=== PATIENT | female | born 1980 ===

== ENCOUNTER 2025-03-08 09:36 | Outpatient (CLI) | payer OTHER | END 2025-03-08 09:38 | disposition home or self-care (01) | LOC: PRENATAL 09:36 | PROVIDERS: ATTEND Obstetrics & Gynecology Maternal & Fetal Medicine | DX: O44.00 Complete placenta previa NOS or without hemorrhage, unspecified trimester (principal); O09.529 Supervision of elderly multigravida, unspecified trimester; O99.280 Endocrine, nutritional and metabolic diseases complicating pregnancy, unspecified trimester; Z3A.22 22 weeks gestation of pregnancy ==

== ENCOUNTER 2025-05-10 10:03 | Outpatient (CLI) | payer OTHER | END 2025-05-10 10:06 | disposition home or self-care (01) | LOC: PRENATAL 10:03 | DX: O26.849 Uterine size-date discrepancy, unspecified trimester (principal); O36.8199 Decreased fetal movements, unspecified trimester, other fetus; O09.529 Supervision of elderly multigravida, unspecified trimester; O99.280 Endocrine, nutritional and metabolic diseases complicating pregnancy, unspecified trimester; Z3A.31 31 weeks gestation of pregnancy ==